=== PATIENT | male | born 1955 | race Caucasian/White ===

== ENCOUNTER 2018-09-24 09:28 | Emergency (ER) | payer MEDICAID ==
[~2018-09-24] VITALS: Ht 165.1 cm; Wt 86.5 kg
--- NOTE | 2018-09-24 11:30 | NUR ---
Gigi oneill in [facility] - 09/24/18 at 1130 by SERGEI NIL FOR REPEAT VS.
--- NOTE | 2018-09-24 11:30 | NUR ---
PT TO ROOM FROM LOBBY AT THIS TIME.
[2018-09-24] MEDS ORDERED: ALBUTEROL/IPRATROPIUM 2.5MG/0.5MG, 3 ML NPPB ONE ×2 (12:00→13:00)
[2018-09-24 12:49] VITALS: BP 143/56
--- NOTE | 2018-09-24 12:50 | NUR ---
PT. IS A & O X 4 WITH C/O 2 DAY HX OF FEELING SOB. PT. HAS INSPIRATORY AND EXP WHEEZING NOTED THROUGHOUT. VSS. PT. IS RESTING WITHOUT CONCERNS. PT. WAS MEDICATED ORDERED.
--- NOTE | 2018-09-24 13:38 | NUR ---
PT. WAS GIVEN DISCHARGE INSTRUCTIONS AND SCRIPTS WITH UNDERSTANDING VERBALIZED ALONG WITH WILLINGNESS TO COMPLY. PT. WAS AMBULATORY TO THE DISCHARGE DESK.
== END 2018-09-24 13:42 | disposition home or self-care (01) ==
LOC: ED 13:37
DX: J98.01 Acute bronchospasm (principal); I10 Essential (primary) hypertension; F17.200 Nicotine dependence, unspecified, uncomplicated
CPT/HCPCS: 71046; 94640; 99283; J7512; J7620

== ENCOUNTER 2019-01-09 00:44 | Emergency (ER) | payer MEDICAID ==
[~2019-01-09] VITALS: Ht 167.6 cm; Wt 78.0 kg
--- NOTE | 2019-01-09 00:47 | NUR ---
PT EVALUATED BY DR MCLAIN UPON ARRIVAL AND CLEARED TO GO DIRECTLY TO CT.
--- NOTE | 2019-01-09 01:05 | NUR ---
Upon return from CT, pt refusing to get in a gown. States "I'm not staying here. I don't want to be here." ERP aware and in to eval and discuss AMA.
--- NOTE | 2019-01-09 01:08 | NUR ---
RN and ERP discussed in depth the risks of leaving AMA. Pt verbalizes understanding--states "I'm going to let God to his work. I'm a DNR. I do not want to stay." Risks again discussed. Pt continues to wish to leave. Pt is AXOx4 and able to decline care. Pt will be d/c back to [facility].
[2019-01-09 01:09] VITALS: BP 124/72
[2019-01-09] MEDS ORDERED: OMNIPAQUE 350 MG/ML, 100ML BOTTLE ONE (05:17)
== END 2019-01-09 01:30 | disposition left against medical advice (07) ==
LOC: ED 01:23
DX: I63.40 Cerebral infarction due to embolism of unspecified cerebral artery (principal); Z72.9 Problem related to lifestyle, unspecified; M62.81 Muscle weakness (generalized); F17.200 Nicotine dependence, unspecified, uncomplicated; I10 Essential (primary) hypertension
CPT/HCPCS: 70450; 70496; 70498; 99284; Q9967

== ENCOUNTER 2019-07-10 19:22 | Inpatient (IN) | payer MEDICAID ==
[~2019-07-10] VITALS: Ht 177.8 cm; Wt 68.2 kg
--- NOTE | 2019-07-10 20:06 | NUR ---
PT WITH SWELLING IN THE LEGS AND PT STATES THAT SWELLING HAS BEEN ASCENDING UP TO PELVIS X 1 WEEK. PT RECENT TREATED FOR CELLULITIS AT [facility]. ER ROSAS GARCIA IN TO ASSESS PT
[2019-07-10] MEDS ORDERED: GABA600T7 PO (20:15)
[2019-07-10] MEDS ORDERED: AMPH30TA2 PO (20:15)
[2019-07-10 20:36] LABS: BASOPHILS # (AUTO) 0.01 x10^3/uL (0-0.1); BASOPHILS % (AUTO) 0 % (0-1); EOSINOPHILS # (AUTO) 0.49 x10^3/uL (0-0.4); EOSINOPHILS % (AUTO) 6 % (1-7); LYMPHOCYTES # (AUTO) 1.08 x10^3/uL (1-3.4); LYMPHOCYTES % (AUTO) 12 % (22-44); MD NO; MEAN CORPUSCULAR HEMOGLOBIN 32.6 pg (27.5-34.5); MEAN CORPUSCULAR HGB CONC 33.3 g/dL (33.2-36.2); MEAN CORPUSCULAR VOLUME 97.7 fL (81-97); MEAN PLATELET VOLUME 7.9 fL (7.4-10.4); MONOCYTES # (AUTO) 0.73 x10^3/uL (0.2-0.8); MONOCYTES % (AUTO) 8 % (2-9); NEUTROPHILS # (AUTO) 6.57 x10^3/uL (1.8-6.8); NEUTROPHILS % (AUTO) 74 % (42-75); PLATELET COUNT 212 x10^3/uL (130-400); RED BLOOD COUNT 3.67 x10^6/uL (4.38-5.82); RED CELL DISTRIBUTION WIDTH 14.1 % (9.4-14.8)
--- NOTE | 2019-07-10 20:48 | NUR ---
JUANITO RN: PT RESTING IN ROOM. REGULAR RESP. LAUNDRY AGENT ON NSR NOTED. WILL CONTINUE TO MONITOR.
[2019-07-10 20:50] LABS: ALANINE AMINOTRANSFERASE 49 U/L (12-78); ALBUMIN 2.9 g/dL (3.4-5.0); ANION GAP 2 mmol/L (5-15); CALCIUM 8.2 mg/dL (8.5-10.1); CHLORIDE 105 mmol/L (98-107); CREATININE 0.87 mg/dL (0.7-1.3)
[2019-07-10 20:54] LABS: ALKALINE PHOSPHATASE 103 U/L (45-117); BILIRUBIN,TOTAL 0.6 mg/dL (0.2-1.0); TOTAL PROTEIN 7.3 g/dL (6.4-8.2)
[2019-07-10 21:35] LABS: TROPONIN I < 0.015 ng/mL (0.000-0.045)
[2019-07-10] MEDS ORDERED: FUROSEMIDE 40 MG/4 ML ONE (22:11)
--- NOTE | 2019-07-10 22:25 | NUR ---
PT MEDICATED PER EMAR. ER CHEMO IN TO UPDATE PT ON POC
[2019-07-10] MEDS ORDERED: FUROSEMIDE 40 MG/4 ML IV ONE (22:30)
[2019-07-10] MEDS ORDERED: CEFAZOLIN PMX 1GM/50ML 50 ML IV ONE (22:30)
--- NOTE | 2019-07-10 22:31 | NUR ---
PER DR MCLAIN, NO BLOOD CULTURES BEFORE ABX Addendum: 07/10/19 at 2233 by GHASSAN documented on [facility] in error. this is my note.
[2019-07-10] MEDS ORDERED: CEFAZOLIN PMX 1GM/50ML 50 ML ONE (22:34)
--- NOTE | 2019-07-10 22:55 | NUR ---
report to pratibha grubbs
[2019-07-10 23:35] VITALS: BP 176/80
[2019-07-11] MEDS ORDERED: ACETAMINOPHEN 325 MG TABLET PO PRN
[2019-07-11] MEDS ORDERED: BISACODYL 10 MG SUPP PR PRN
[2019-07-11] MEDS ORDERED: HEPARIN 5,000 UNITS/ML, 1ML SQ SCH
[2019-07-11] MEDS ORDERED: hydrALAzine 20 MG/ML, 1ML IVPush PRN
[2019-07-11] MEDS ORDERED: POLYETHYLENE GLYCOL 17 GM PACKET PO PRN
[2019-07-11] MEDS: GABAPENTIN 300 MG CAPSULE PO SCH ×4 (01:01→21:33)
[2019-07-11] MEDS: SODIUM CHLORIDE FLUSH 10ML SYR IVF SCH ×3 (01:02→22:10)
[2019-07-11] MEDS: AMPICILLIN/SULBACTAM 3 GM in SODIUM CHLORIDE 0.9% 100 ML IV SCH ×2 (01:05→06:29)
[2019-07-11 02:08] VITALS: BP 145/74
[2019-07-11 06:08] LABS: BASOPHILS # (AUTO) 0.07 x10^3/uL (0-0.1); BASOPHILS % (AUTO) 1 % (0-1); EOSINOPHILS # (AUTO) 0.46 x10^3/uL (0-0.4); EOSINOPHILS % (AUTO) 6 % (1-7); LYMPHOCYTES % (AUTO) 10 % (22-44); MD NO; MEAN CORPUSCULAR HEMOGLOBIN 32.6 pg (27.5-34.5); MEAN CORPUSCULAR HGB CONC 33.4 g/dL (33.2-36.2); MEAN CORPUSCULAR VOLUME 97.5 fL (81-97); MEAN PLATELET VOLUME 8.1 fL (7.4-10.4); MONOCYTES # (AUTO) 0.84 x10^3/uL (0.2-0.8); MONOCYTES % (AUTO) 11 % (2-9); NEUTROPHILS # (AUTO) 5.76 x10^3/uL (1.8-6.8); NEUTROPHILS % (AUTO) 73 % (42-75); PLATELET COUNT 188 x10^3/uL (130-400); RED BLOOD COUNT 3.75 x10^6/uL (4.38-5.82); RED CELL DISTRIBUTION WIDTH 14.4 % (9.4-14.8)
[2019-07-11 06:12] LABS: ALBUMIN 2.7 g/dL (3.4-5.0); ANION GAP 5 mmol/L (5-15); CALCIUM 8.2 mg/dL (8.5-10.1); CHLORIDE 101 mmol/L (98-107)
[2019-07-11 06:18] LABS: ALANINE AMINOTRANSFERASE 43 U/L (12-78); ALKALINE PHOSPHATASE 94 U/L (45-117); BILIRUBIN,TOTAL 1.1 mg/dL (0.2-1.0); CHOL/HDL RATIO 2.7; CHOLESTEROL, TOTAL 122 mg/dL (140-239); CREATININE 0.64 mg/dL (0.7-1.3); HDL CHOL % 37 % (26-37); HDL CHOLESTEROL (DIRECT) 45 mg/dL (40-60); LDL CHOLESTEROL,CALCULATED 68 mg/dL (54-169); LDL/HDL RATIO 1.5 (0.5-3.0); TOTAL PROTEIN 7.1 g/dL (6.4-8.2); TRIGLYCERIDES 45 mg/dL (50-200); TROPONIN I < 0.015 ng/mL (0.000-0.045); VLDL CHOLESTEROL 9 mg/dL (0-25)
[2019-07-11 06:43] VITALS: BP 149/70
[2019-07-11] MEDS ORDERED: POTASSIUM CHLORIDE 20 MEQ TAB.ER.PRT PO ONE (07:30)
[2019-07-11] MEDS ORDERED: FUROSEMIDE 40 MG/4 ML IV SCH (07:30)
[2019-07-11] MEDS: FUROSEMIDE 40 MG/4 ML IV SCH (08:29)
[2019-07-11] MEDS: METOPROLOL TARTRATE 25 MG TABLET PO SCH (08:29)
[2019-07-11] MEDS: DEXTROAMPHETAMINE PO SCH (08:29)
[2019-07-11] MEDS: AMPHETAMINE PO SCH (08:29)
[2019-07-11] MEDS: LISINOPRIL 5 MG TABLET PO SCH (08:29)
[2019-07-11] MEDS: SENNA/DOCUSATE TABLET PO SCH (08:30)
[2019-07-11 12:12] VITALS: BP 122/71
[2019-07-11 12:20] LABS: TROPONIN I < 0.015 ng/mL (0.000-0.045)
[2019-07-11 19:57] VITALS: BP 163/87
[2019-07-11] MEDS ORDERED: ALBUTEROL/IPRATROPIUM 2.5MG/0.5MG, 3 ML NPPB PRN (23:30)
[2019-07-12 01:53] VITALS: BP 153/88
[2019-07-12 06:41] VITALS: BP 147/74
[2019-07-12 06:47] LABS: ANION GAP 4 mmol/L (5-15); CALCIUM 8.3 mg/dL (8.5-10.1); CHLORIDE 103 mmol/L (98-107); CREATININE 0.74 mg/dL (0.7-1.3)
[2019-07-12] MEDS: SODIUM CHLORIDE FLUSH 10ML SYR IVF SCH ×2 (07:58→21:00)
[2019-07-12] MEDS: FUROSEMIDE 40 MG/4 ML IV SCH (07:58)
[2019-07-12] MEDS: AMPHETAMINE PO SCH (07:59)
[2019-07-12] MEDS: DEXTROAMPHETAMINE PO SCH (07:59)
[2019-07-12] MEDS: GABAPENTIN 300 MG CAPSULE PO SCH ×3 (08:00→23:42)
[2019-07-12] MEDS: LISINOPRIL 5 MG TABLET PO SCH (08:00)
[2019-07-12] MEDS: METOPROLOL TARTRATE 25 MG TABLET PO SCH (08:01)
[2019-07-12] MEDS: SENNA/DOCUSATE TABLET PO SCH (08:02)
[2019-07-12 12:05] VITALS: BP 162/80
[2019-07-12] MEDS: ONDANSETRON ODT 4 MG PO PRN (12:09)
[2019-07-12] MEDS ORDERED: ENOXAPARIN 40 MG/0.4 ML SQ SCH (13:00)
[2019-07-12] MEDS ORDERED: LORazepam 2 MG/ML, 1ML IVPush ONE (17:30)
[2019-07-12] MEDS ORDERED: OMNIPAQUE 350 MG/ML, 100ML BOTTLE ONE (18:05)
[2019-07-12 18:57] LABS: TROPONIN I < 0.015 ng/mL (0.000-0.045)
[2019-07-12 19:01] VITALS: BP_SYST 131; BP_SYST 165; BP_DIAS 63; BP_DIAS 80
[2019-07-12] MEDS: ONDANSETRON 2MG/ML, 2ML IVPush PRN (21:50)
[2019-07-12] MEDS ORDERED: LORazepam 1MG TABLET PO ONE ×2 (23:40→23:50)
[2019-07-12] MEDS ORDERED: LORazepam 1MG TABLET ONE (23:51)
[2019-07-13 01:36] VITALS: BP 158/62
[2019-07-13 06:06] LABS: ANION GAP 7 mmol/L (5-15); CALCIUM 8.5 mg/dL (8.5-10.1); CHLORIDE 99 mmol/L (98-107); CREATININE 0.75 mg/dL (0.7-1.3)
[2019-07-13 06:21] LABS: BASOPHILS # (AUTO) 0.04 x10^3/uL (0-0.1); BASOPHILS % (AUTO) 0 % (0-1); EOSINOPHILS # (AUTO) 0.08 x10^3/uL (0-0.4); EOSINOPHILS % (AUTO) 1 % (1-7); LYMPHOCYTES # (AUTO) 0.88 x10^3/uL (1-3.4); LYMPHOCYTES % (AUTO) 9 % (22-44); MD NO; MEAN CORPUSCULAR HEMOGLOBIN 32.1 pg (27.5-34.5); MEAN CORPUSCULAR HGB CONC 33.8 g/dL (33.2-36.2); MEAN CORPUSCULAR VOLUME 95.1 fL (81-97); MEAN PLATELET VOLUME 7.8 fL (7.4-10.4); MONOCYTES # (AUTO) 0.95 x10^3/uL (0.2-0.8); MONOCYTES % (AUTO) 10 % (2-9); NEUTROPHILS # (AUTO) 7.61 x10^3/uL (1.8-6.8); NEUTROPHILS % (AUTO) 80 % (42-75); PLATELET COUNT 225 x10^3/uL (130-400); RED BLOOD COUNT 4.25 x10^6/uL (4.38-5.82); RED CELL DISTRIBUTION WIDTH 13.4 % (9.4-14.8)
[2019-07-13 07:12] VITALS: BP_SYST 171; BP_SYST 181; BP_DIAS 90; BP_DIAS 94
[2019-07-13] MEDS: GABAPENTIN 300 MG CAPSULE PO SCH ×2 (08:23→15:06)
[2019-07-13] MEDS: METOPROLOL TARTRATE 25 MG TABLET PO SCH (08:23)
[2019-07-13] MEDS: LISINOPRIL 5 MG TABLET PO SCH (08:23)
[2019-07-13] MEDS: SODIUM CHLORIDE FLUSH 10ML SYR IVF SCH ×2 (08:24→21:00)
[2019-07-13] MEDS: PANTOPRAZOLE 40 MG IV IVPush SCH (08:24)
[2019-07-13] MEDS: SENNA/DOCUSATE TABLET PO SCH (08:26)
[2019-07-13] MEDS ORDERED: REGADENOSON 0.4 MG/5 ML SYRINGE ONE (09:11)
[2019-07-13] MEDS: ONDANSETRON ODT 4 MG PO PRN ×2 (11:21→12:03)
[2019-07-13] MEDS: ONDANSETRON 2MG/ML, 2ML IVPush PRN (12:09)
[2019-07-13 13:12] VITALS: BP 169/85
[2019-07-13] MEDS ORDERED: GABAPENTIN 400 MG CAPSULE PO PRN (15:30)
[2019-07-13 19:09] VITALS: BP 162/84
[2019-07-13 21:07] LABS: AMPHETAMINE SCREEN, URINE Negative (Negative); BARBITURATE SCREEN, URINE Negative (Negative); BENZODIAZEPINE SCREEN, URINE Negative (Negative); CANNABINOID SCREEN, URINE Positive (Negative); COCAINE SCREEN, URINE Negative (Negative); METHADONE SCREEN, URINE Negative (Negative); OPIATE SCREEN, URINE Negative (Negative)
[2019-07-14] MEDS ORDERED: IBUPROFEN 600 MG TABLET ONE (00:31)
[2019-07-14] MEDS: IBUPROFEN 600 MG TABLET PO PRN ×2 (00:32→12:48)
[2019-07-14 02:25] VITALS: BP 158/63
[2019-07-14 08:23] VITALS: BP 153/99
[2019-07-14] MEDS: METOPROLOL TARTRATE 25 MG TABLET PO SCH (08:29)
[2019-07-14] MEDS: LISINOPRIL 5 MG TABLET PO SCH (08:29)
[2019-07-14] MEDS: SODIUM CHLORIDE FLUSH 10ML SYR IVF SCH (08:30)
[2019-07-14] MEDS: PANTOPRAZOLE 40 MG IV IVPush SCH (08:30)
[2019-07-14] MEDS: SENNA/DOCUSATE TABLET PO SCH (09:04)
[2019-07-14] MEDS ORDERED: METO25TA35 PO (11:08)
[2019-07-14] MEDS ORDERED: FURO20TA3 PO (11:08)
[2019-07-14] MEDS ORDERED: PANT40TA3 PO (11:08)
[2019-07-14] MEDS ORDERED: POTA20PA25 PO (11:08)
[2019-07-14] MEDS ORDERED: FLU VACC QS2019-20 36MOS UP/PF 0.5 ML IM-VACC ONE (14:30)
== END 2019-07-14 16:45 | disposition home or self-care (01) | DRG 187 ==
LOC: ED 22:34 → EDIP 22:37 → 4EST 23:07 → DCLOUNGE 07-14 16:20
PROVIDERS: ADMIT Family Medicine; ATTEND Internal Medicine
PROC: 0W993ZZ Drainage of Right Pleural Cavity, Percutaneous Approach (ICD-10-PCS; principal; 2019-07-12)
DX: J90 Pleural effusion, not elsewhere classified (principal); E87.1 Hypo-osmolality and hyponatremia; L03.115 Cellulitis of right lower limb; L03.116 Cellulitis of left lower limb; I85.10 Secondary esophageal varices without bleeding; K76.6 Portal hypertension; J94.2 Hemothorax; I10 Essential (primary) hypertension; F12.90 Cannabis use, unspecified, uncomplicated; F17.210 Nicotine dependence, cigarettes, uncomplicated; F41.0 Panic disorder [episodic paroxysmal anxiety]; K74.60 Unspecified cirrhosis of liver; D72.1 Eosinophilia; J44.9 Chronic obstructive pulmonary disease, unspecified; F60.9 Personality disorder, unspecified; D53.9 Nutritional anemia, unspecified; F90.9 Attention-deficit hyperactivity disorder, unspecified type; Z82.3 Family history of stroke; Z86.73 Personal history of transient ischemic attack (TIA), and cerebral infarction without residual deficits; Z80.9 Family history of malignant neoplasm, unspecified
CPT/HCPCS: 32555; 36415; 71045; 71275; 74160; 78452; 80048; 80053; 80061; 80074; 80307; 82042; 82607; 82945; 83605; 83880; 84157; 84484; 85025; 87070; 87075; 87102; 87205; 87521; 88112; 88305; 89051; 93005; 93017; 93306; 93970; 94640; 96365; 96375; G0378; J0295; J0690; J1644; J1650; J1940; J2405; J2785; Q0162; Q9967; A9502; C9113; C9898; J0360; J2060

== ENCOUNTER 2020-04-05 17:54 | Observation (INO) | payer MEDICAID ==
[~2020-04-05] VITALS: Ht 167.6 cm; Wt 82.7 kg
[~2020-04-05 17:54] MED LIST: AMLO10TA8 PO; AMOX1TAB64 PO; AMPH30TA2 PO; ASPI81TA45 PO; FURO20TA3 PO; GABA600T7 PO; GABA800T5 PO; LISI-167 PO; LORA-446 PO; METO25TA35 PO; PANT40TA3 PO; POTA20PA25 PO; SERT100T32 PO; SPIR50TA4 PO
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
--- NOTE | 2020-04-05 18:16 | NUR ---
EKG OBTAINED AND GIVEN TO PROVIDER.
--- NOTE | 2020-04-05 18:20 | NUR ---
C COLLAR APPLIED TO PT W/ CSPINE PRECAUTIONS.
[2020-04-05] MEDS ORDERED: SODIUM CHLORIDE FLUSH 10ML SYR IVF ONE (18:30)
[2020-04-05] MEDS ORDERED: SODIUM CHLORIDE 0.9% 1,000ML IVBOLUS ONE ×2 (18:30→19:30)
[2020-04-05 18:32] LABS: BASOPHILS % (AUTO) 1 % (0-1); EOSINOPHILS # (AUTO) 1.32 x10^3/uL (0-0.4); EOSINOPHILS % (AUTO) 14 % (1-7); LYMPHOCYTES # (AUTO) 2.71 x10^3/uL (1-3.4); LYMPHOCYTES % (AUTO) 29 % (22-44); MD NO; MEAN CORPUSCULAR HEMOGLOBIN 33.4 pg (27.5-34.5); MEAN CORPUSCULAR HGB CONC 34.1 g/dL (33.2-36.2); MEAN PLATELET VOLUME 9.2 fL (7.4-10.4); MONOCYTES # (AUTO) 0.72 x10^3/uL (0.2-0.8); MONOCYTES % (AUTO) 8 % (2-9); NEUTROPHILS # (AUTO) 4.52 x10^3/uL (1.8-6.8); NEUTROPHILS % (AUTO) 48 % (42-75); PLATELET COUNT 153 x10^3/uL (130-400); RED BLOOD COUNT 3.51 x10^6/uL (4.38-5.82); RED CELL DISTRIBUTION WIDTH 13.9 % (9.4-14.8)
--- NOTE | 2020-04-05 18:35 | NUR ---
PT TO CT ACCOMPANIED BY THIS RN ON CONTINOUS CARDIAC MONITORING. PT RETURNED TO ROOM W/O INCIDENT. PT CONNECTED TO ALL MONITORING, VSS. ÁNGEL. AT BEDSIDE FOR EVAL.
[2020-04-05 18:37] LABS: ALANINE AMINOTRANSFERASE 28 U/L (12-78); ALBUMIN 3.3 g/dL (3.4-5.0); ANION GAP 7 mmol/L (5-15); CALCIUM 8.4 mg/dL (8.5-10.1); CHLORIDE 109 mmol/L (98-107); CREATININE 1.26 mg/dL (0.7-1.3)
[2020-04-05 18:42] LABS: ALKALINE PHOSPHATASE 43 U/L (45-117); BILIRUBIN,TOTAL 0.8 mg/dL (0.2-1.0); TOTAL PROTEIN 6.3 g/dL (6.4-8.2); TROPONIN I < 0.015 ng/mL (0.000-0.045)
--- NOTE | 2020-04-05 18:50 | NUR ---
ALL TESTS RESULTED. PT IS UP FOR RECHECK AT THIS TIME.
--- NOTE | 2020-04-05 19:02 | NUR ---
REPORT GIVEN TO HENRIETTA LIVINGSTON. PT HYPOTENSIVE, OTHER VS WDL. PT RESTING ON GURNEY W/ CALL LIGHT IN REACH AND SIDE RAILS UPX2. DENIES FURTHER NEEDS AT THIS TIME.
--- NOTE | 2020-04-05 19:05 | NUR ---
REPORT RECIEVED FROM EASTON LIVINGSTON, SAFETY PRECAUTIONS IN PLACE.
--- NOTE | 2020-04-05 19:06 | NUR ---
PT STATES NO DIZZYNESS OR FEELING LIGHTHEADED. PATIENT A/O X 4 AND CONVERSING WITH CLEAR SPEECH. SKIN PWD.
--- NOTE | 2020-04-05 19:23 | NUR ---
PATIENT MEDICATED PER EMAR, URINE COLLECTED, NO S/S OF DISTRESS.
[2020-04-05 19:36] LABS: MICROSCOPIC NOT IND
[2020-04-05 19:47] LABS: AMPHETAMINE SCREEN, URINE Negative (Negative); BARBITURATE SCREEN, URINE Negative (Negative); BENZODIAZEPINE SCREEN, URINE Negative (Negative); CANNABINOID SCREEN, URINE Negative (Negative); COCAINE SCREEN, URINE Negative (Negative); METHADONE SCREEN, URINE Negative (Negative); OPIATE SCREEN, URINE Negative (Negative)
[2020-04-05] MEDS ORDERED: SODIUM CHLORIDE FLUSH 10ML SYR IVF PRN (20:00)
--- NOTE | 2020-04-05 20:12 | NUR ---
REPORT GIVEN TO MIKI SANTILLAN
[2020-04-05] MEDS: SODIUM CHLORIDE 0.9% 1,000 ML IV SCH (20:31)
[2020-04-05] MEDS ORDERED: OXYcodone IR 5MG TABLET PO PRN (21:00)
[2020-04-05] MEDS ORDERED: PROMETHAZINE 25 MG/ML, 1ML IM PRN (21:00)
[2020-04-05] MEDS ORDERED: ONDANSETRON 2MG/ML, 2ML IVPush PRN (21:00)
[2020-04-05] MEDS ORDERED: ACETAMINOPHEN 325 MG TABLET PO PRN (21:00)
[2020-04-05] MEDS ORDERED: DOCUSATE 100 MG CAPSULE PO PRN (21:00)
[2020-04-05] MEDS ORDERED: POTASSIUM CHLORIDE 20 MEQ TAB.ER.PRT PO ONE (21:00)
[2020-04-05] MEDS ORDERED: BISACODYL 10 MG SUPP PR PRN (21:00)
[2020-04-05] MEDS ORDERED: ONDANSETRON ODT 4 MG PO PRN (21:00)
[2020-04-05] MEDS ORDERED: ENOXAPARIN 40 MG/0.4 ML SQ SCH (21:00)
[2020-04-05] MEDS ORDERED: POLYETHYLENE GLYCOL 17 GM PACKET PO PRN (21:00)
[2020-04-05 21:09] LABS: FREE T4 (FREE THYROXINE) 1.01 ng/dL (0.76-1.46)
[2020-04-05 22:10] VITALS: BP 108/75
[2020-04-06 00:43] VITALS: BP 106/65
[2020-04-06 05:31] LABS: BASOPHILS # (AUTO) 0.06 x10^3/uL (0-0.1); BASOPHILS % (AUTO) 1 % (0-1); EOSINOPHILS # (AUTO) 0.73 x10^3/uL (0-0.4); EOSINOPHILS % (AUTO) 8 % (1-7); LYMPHOCYTES # (AUTO) 1.24 x10^3/uL (1-3.4); LYMPHOCYTES % (AUTO) 14 % (22-44); MD NO; MEAN CORPUSCULAR HEMOGLOBIN 33.2 pg (27.5-34.5); MEAN CORPUSCULAR HGB CONC 33.7 g/dL (33.2-36.2); MEAN CORPUSCULAR VOLUME 98.4 fL (81-97); MEAN PLATELET VOLUME 9.4 fL (7.4-10.4); MONOCYTES # (AUTO) 0.68 x10^3/uL (0.2-0.8); MONOCYTES % (AUTO) 8 % (2-9); NEUTROPHILS # (AUTO) 6.31 x10^3/uL (1.8-6.8); NEUTROPHILS % (AUTO) 70 % (42-75); PLATELET COUNT 121 x10^3/uL (130-400); RED CELL DISTRIBUTION WIDTH 13.7 % (9.4-14.8)
[2020-04-06 05:40] LABS: ALBUMIN 3.5 g/dL (3.4-5.0); ANION GAP 6 mmol/L (5-15); CALCIUM 8.6 mg/dL (8.5-10.1); CHLORIDE 109 mmol/L (98-107)
[2020-04-06 05:44] LABS: ALANINE AMINOTRANSFERASE 28 U/L (12-78); ALKALINE PHOSPHATASE 50 U/L (45-117); BILIRUBIN,TOTAL 0.7 mg/dL (0.2-1.0); CHOL/HDL RATIO 3.3; CHOLESTEROL, TOTAL 157 mg/dL (140-239); CREATININE 0.99 mg/dL (0.7-1.3); HDL CHOL % 30 % (26-37); HDL CHOLESTEROL (DIRECT) 47 mg/dL (40-60); LDL CHOLESTEROL,CALCULATED 92 mg/dL (54-169); TOTAL PROTEIN 6.7 g/dL (6.4-8.2); TRIGLYCERIDES 90 mg/dL (50-200); VLDL CHOLESTEROL 18 mg/dL (0-25)
[2020-04-06 07:47] VITALS: BP 124/70
[2020-04-06] MEDS: SODIUM CHLORIDE 0.9% 1,000 ML IV SCH (08:19)
[2020-04-06 09:32] VITALS: BP_SYST 104; BP_SYST 124; BP_SYST 132; BP_DIAS 70; BP_DIAS 78; BP_DIAS 85
[2020-04-06] MEDS ORDERED: LACTATED RINGERS 1,000 ML IVBOLUS ONE (11:00)
[2020-04-06 12:10] VITALS: BP_SYST 129; BP_SYST 141; BP_SYST 152; BP_DIAS 82; BP_DIAS 83; BP_DIAS 91
[2020-04-06 13:51] VITALS: BP 144/79
== END 2020-04-06 20:13 | disposition home or self-care (01) ==
LOC: ED 19:09 → INTOOBSV 19:49 → EDIP 19:49 → 5SO 20:16
PROVIDERS: ADMIT Internal Medicine; ATTEND Internal Medicine
DX: I95.9 Hypotension, unspecified (principal); R55 Syncope and collapse; M47.812 Spondylosis without myelopathy or radiculopathy, cervical region; I11.0 Hypertensive heart disease with heart failure; I50.9 Heart failure, unspecified; K76.6 Portal hypertension; I27.20 Pulmonary hypertension, unspecified; F90.9 Attention-deficit hyperactivity disorder, unspecified type; I85.00 Esophageal varices without bleeding; J45.909 Unspecified asthma, uncomplicated; F17.200 Nicotine dependence, unspecified, uncomplicated; F10.11 Alcohol abuse, in remission; Z79.899 Other long term (current) drug therapy; Z86.19 Personal history of other infectious and parasitic diseases; Z87.19 Personal history of other diseases of the digestive system; Z86.73 Personal history of transient ischemic attack (TIA), and cerebral infarction without residual deficits; Z79.82 Long term (current) use of aspirin
CPT/HCPCS: 36415; 70450; 71045; 72125; 80053; 80061; 80307; 81003; 82533; 83036; 83735; 84439; 84443; 84484; 85025; 96360; 96361; 96372; 99285; G0378; J1650; J7030; J7120

== ENCOUNTER 2020-12-01 12:18 | Emergency (ER) | payer MEDICAID ==
[~2020-12-01] VITALS: Ht 167.6 cm; Wt 86.8 kg
[~2020-12-01 12:18] MED LIST changes: +AMLO-211 PO; -AMLO10TA8 PO
--- NOTE | 2020-12-01 12:29 | NUR ---
Hong Rn Note: PT ambulatory back to lobby, declines wheelchair
--- NOTE | 2020-12-01 12:46 | NUR ---
Gigi oneill in [facility] - 12/01/20 at 1248 by KATHERINE MICROWAVE ENGINEER: CALLED FOR ROOM, NO ANSWER
--- NOTE | 2020-12-01 12:48 | NUR ---
SUPERVISOR WATER TREATMENT PLANT: PT TO ROOM FROM LOBBY VIA W/C
[2020-12-01] MEDS ORDERED: SODIUM CHLORIDE FLUSH 10ML SYR IVF ONE (14:30)
--- NOTE | 2020-12-01 16:28 | NUR ---
pt ambulates to bathroom
[2020-12-01 16:29] VITALS: BP 107/72
[2020-12-01] MEDS ORDERED: OMNIPAQUE 350 MG/ML, 100ML BOTTLE ONE (16:32)
== END 2020-12-01 18:49 | disposition home or self-care (01) ==
LOC: ED 13:14
DX: S52.022A Displaced fracture of olecranon process without intraarticular extension of left ulna, initial encounter for closed fracture (principal); S22.42XA Multiple fractures of ribs, left side, initial encounter for closed fracture; S36.032A Major laceration of spleen, initial encounter; S39.91XA Unspecified injury of abdomen, initial encounter; S50.312A Abrasion of left elbow, initial encounter; I11.0 Hypertensive heart disease with heart failure; I50.9 Heart failure, unspecified; F17.200 Nicotine dependence, unspecified, uncomplicated; Z86.73 Personal history of transient ischemic attack (TIA), and cerebral infarction without residual deficits; V27.0XXA Motorcycle driver injured in collision with fixed or stationary object in nontraffic accident, initial encounter; Y93.89 Activity, other specified; Y92.89 Other specified places as the place of occurrence of the external cause; Y99.8 Other external cause status
CPT/HCPCS: 71046; 71260; 73080; 74177; 82565; 99285; Q9967

== ENCOUNTER 2020-12-01 19:13 | Emergency (ER) | payer MEDICAID ==
[~2020-12-01] VITALS: Ht 167.6 cm; Wt 86.0 kg
[2020-12-01 19:21] VITALS: BP 147/109
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
[2020-12-01 19:58] LABS: BASOPHILS % (AUTO) 0 % (0-1); EOSINOPHILS % (AUTO) 1 % (1-7); LYMPHOCYTES % (AUTO) 7 % (22-44); MEAN CORPUSCULAR HEMOGLOBIN 32.8 pg (27.5-34.5); MEAN CORPUSCULAR HGB CONC 34.6 g/dL (33.2-36.2); MEAN PLATELET VOLUME 9.3 fL (7.4-10.4); MONOCYTES % (AUTO) 11 % (2-9); NEUTROPHILS % (AUTO) 81 % (42-75); PLATELET COUNT 130 x10^3/uL (130-400); RED CELL DISTRIBUTION WIDTH 13.9 % (9.4-14.8)
[2020-12-01 20:09] LABS: ANION GAP 7 mmol/L (5-15); CALCIUM 8.6 mg/dL (8.5-10.1); CHLORIDE 104 mmol/L (98-107)
[2020-12-01 20:10] LABS: CREATININE 0.91 mg/dL (0.7-1.3)
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
[2020-12-01 21:13] LABS: MD SCAN
== END 2020-12-01 21:16 | disposition left against medical advice (07) ==
LOC: ED 20:49
DX: S52.022A Displaced fracture of olecranon process without intraarticular extension of left ulna, initial encounter for closed fracture (principal); S22.42XA Multiple fractures of ribs, left side, initial encounter for closed fracture; I11.0 Hypertensive heart disease with heart failure; I50.9 Heart failure, unspecified; F17.200 Nicotine dependence, unspecified, uncomplicated; Z86.73 Personal history of transient ischemic attack (TIA), and cerebral infarction without residual deficits; Z86.19 Personal history of other infectious and parasitic diseases; V27.0XXA Motorcycle driver injured in collision with fixed or stationary object in nontraffic accident, initial encounter; Y93.89 Activity, other specified; Y92.410 Unspecified street and highway as the place of occurrence of the external cause; Y99.8 Other external cause status
CPT/HCPCS: 36415; 80048; 82040; 85025; 99283

== ENCOUNTER 2021-04-01 13:55 | Emergency (ER) | payer MEDICAID, MEDICARE ==
[~2021-04-01] VITALS: Ht 167.6 cm; Wt 78.1 kg
[2021-04-01 15:31] LABS: MICROSCOPIC INDICATED
[2021-04-01 15:35] LABS: BASOPHILS % (AUTO) 1 % (0-1); EOSINOPHILS % (AUTO) 1 % (1-7); LYMPHOCYTES % (AUTO) 9 % (22-44); MEAN CORPUSCULAR HEMOGLOBIN 32.4 pg (27.5-34.5); MEAN CORPUSCULAR HGB CONC 34.9 g/dL (33.2-36.2); MONOCYTES % (AUTO) 6 % (2-9); NEUTROPHILS % (AUTO) 84 % (42-75); PLATELET COUNT 208 x10^3/uL (130-400); RED BLOOD COUNT 4.95 x10^6/uL (4.38-5.82)
[2021-04-01 15:39] LABS: ALANINE AMINOTRANSFERASE 23 U/L (12-78); ALBUMIN 3.6 g/dL (3.4-5.0); ANION GAP 11 mmol/L (5-15); CALCIUM 9.6 mg/dL (8.5-10.1); CHLORIDE 103 mmol/L (98-107); CREATININE 1.11 mg/dL (0.7-1.3)
[2021-04-01 15:43] LABS: ALKALINE PHOSPHATASE 111 U/L (45-117); BILIRUBIN,TOTAL 1.5 mg/dL (0.2-1.0); TOTAL PROTEIN 8.6 g/dL (6.4-8.2)
--- NOTE | 2021-04-01 15:46 | NUR ---
No iv in place to do ct exam at this time
[2021-04-01] MEDS ORDERED: OMNIPAQUE 350 MG/ML, 100ML BOTTLE ONE (16:25)
[2021-04-01] MEDS ORDERED: LORazepam 1MG TABLET ONE (17:27)
[2021-04-01] MEDS ORDERED: LORazepam 1MG TABLET PO ONE (17:30)
[2021-04-01 17:58] VITALS: BP 129/79
== END 2021-04-01 18:01 | disposition home or self-care (01) ==
LOC: ED 17:55
DX: K70.30 Alcoholic cirrhosis of liver without ascites (principal); R10.84 Generalized abdominal pain; R06.00 Dyspnea, unspecified; R11.2 Nausea with vomiting, unspecified; R19.7 Diarrhea, unspecified; F41.9 Anxiety disorder, unspecified; I11.0 Hypertensive heart disease with heart failure; I50.9 Heart failure, unspecified; F17.210 Nicotine dependence, cigarettes, uncomplicated; Z86.73 Personal history of transient ischemic attack (TIA), and cerebral infarction without residual deficits
CPT/HCPCS: 36415; 74022; 74177; 80053; 81001; 83690; 83880; 85025; 87077; 87086; 93005; 99285; Q9967